=== PATIENT | male | born 1975 | race Caucasian/White ===

== ENCOUNTER 2023-05-31 04:43 | Day surgery (SDC) | payer OTHER ==
[2023-05-25 12:20] VITALS: BMI 27.8
[2023-05-31 10:25] VITALS: TEMP 97.7
[2023-05-31 11:06] VITALS: RESP 14
[2023-05-31 11:08] VITALS: BP 116/82; PULSE 73
== END 2023-05-31 11:10 | disposition home or self-care (01) ==
LOC: JASU-ENDO 04:43
PROVIDERS: ATTEND Internal Medicine Gastroenterology
PROC: 0DB98ZX Excision of Duodenum, Via Natural or Artificial Opening Endoscopic, Diagnostic (ICD-10-PCS; 2023-05-31)
PROC: 0DB68ZX Excision of Stomach, Via Natural or Artificial Opening Endoscopic, Diagnostic (ICD-10-PCS; 2023-05-31)
PROC: 0DBM8ZX Excision of Descending Colon, Via Natural or Artificial Opening Endoscopic, Diagnostic (ICD-10-PCS; principal; 2023-05-31 10:00)
DX: Z12.11 Encounter for screening for malignant neoplasm of colon (principal); D12.4 Benign neoplasm of descending colon; K63.89 Other specified diseases of intestine; K64.8 Other hemorrhoids; K21.9 Gastro-esophageal reflux disease without esophagitis; K29.50 Unspecified chronic gastritis without bleeding